=== PATIENT | female | born 1995 | race Caucasian/White ===

== ENCOUNTER 2016-06-11 09:30 | Emergency (ER) | payer MEDICAID ==
[~2016-06-11] VITALS: Ht 157.5 cm; Wt 75.0 kg
[2016-06-11] MEDS ORDERED: IBUPROFEN 800 MG TABLET PO ONE (12:15)
[2016-06-11 14:48] VITALS: BP 121/76
== END 2016-06-11 14:49 | disposition home or self-care (01) ==
LOC: EMS 09:34
DX: S50.11XA Contusion of right forearm, initial encounter (principal); S80.211A Abrasion, right knee, initial encounter; Z88.0 Allergy status to penicillin; V49.9XXA Car occupant (driver) (passenger) injured in unspecified traffic accident, initial encounter; Y93.89 Activity, other specified; Y92.89 Other specified places as the place of occurrence of the external cause; Y99.8 Other external cause status
CPT/HCPCS: 99284